=== PATIENT | female | born 1985 | race Caucasian/White ===

== ENCOUNTER 2017-09-13 08:02 | Day surgery (SDC) | payer OTHER ==
[2017-08-31 09:38] VITALS: BMI 23.8
[~2017-09-13 08:02] MED LIST: ceFAZolin IV 1 gm in Dextrose 1 GM/50 ML BAG IVPB ONE
[2017-09-13] MEDS ORDERED: Morphine 10 mg/5 ml Oral Soln PO PRN (08:17)
[2017-09-13] MEDS ORDERED: Dextrose 5%/0.45% NS 1,000 ML IV SCH (08:30)
[2017-09-13] MEDS ORDERED: Propofol 10 mg/ml Inj (20 ML) ONE (10:17)
[2017-09-13] MEDS ORDERED: Midazolam 2 MG/2 ML VIAL ONE (10:17)
[2017-09-13] MEDS ORDERED: Lactated Ringer's 1,000 ML IV ONE (10:17)
[2017-09-13 12:00] VITALS: RESP 18
[2017-09-13 12:29] VITALS: BP 120/80; PULSE 99; TEMP 97; O2SAT 96
--- NOTE | 2017-09-13 17:25 | OP ---
PROCEDURE DATE: 09/13/2017 PREOPERATIVE DIAGNOSIS: Chronic tonsillitis. POSTOPERATIVE DIAGNOSIS: Chronic tonsillitis. PROCEDURE: Tonsillectomy. SIGNIFICANT FINDINGS: Chronically infected tonsils. DESCRIPTION OF PROCEDURE: The patient was brought into the room, placed in the supine position. Anesthesia was initiated through an ET tube. The patient was draped in the usual manner. Mouth gag was placed in the oral cavity, opened and suspended on the Vasquez machine cementer the usual manner. Right tonsil was grabbed and pulled medially. Plasma knife was used to make an incision in the anterior tonsillar pillar. Dissections were done between tonsil and tonsillar fossa using a plasma knife until the tonsil was removed. Bleeding was controlled using a plasma knife. Next, the other tonsil was grabbed and pulled medially. Incision was made in the anterior tonsillar pillar using a plasma knife. Dissections were done between tonsil and tonsillar fossa using a plasma knife until the tonsil was removed. Bleeding was controlled using a plasma knife. Both the tonsillar beds were rubbed vigorously with a plasma knife wand. No bleeding was noted. Mouth gag was let down for 30 seconds and put back up. No bleeding was noted. Mouth gag was then taken down and removed. The patient was taken off anesthesia and taken to recovery room in stable manner. Tim Nava MD
== END 2017-09-13 13:41 | disposition home or self-care (01) ==
LOC: C.SDS 08:02
PROVIDERS: ATTEND Otolaryngology
DX: J35.01 Chronic tonsillitis (principal)
CPT/HCPCS: 42826; 88304; J0690; J1100; J1170; J2250; J2704; J3010; J7040; J7120